=== PATIENT | female | born 1950 | race Caucasian/White ===

== ENCOUNTER 2019-11-03 09:16 | Emergency (ER) | payer MEDICARE, SELFPAY ==
[2019-11-03 09:23] VITALS: BP 92/54; PULSE 74; O2SAT 98
--- NOTE | 2019-11-03 09:24 | ED.GENADULT ---
HPI - General Adult General Chief complaint: Wound/Laceration Stated complaint: rt foot ulcer Time Seen by Provider: 11/03/19 09:24 History of Present Illness HPI narrative: 69-year-old woman with a history of back trouble diabetes and mild peripheral neuropathy, hypothyroidism presents with a developing right foot ulcer. She 1st noticed an issue approximately 4 months ago she felt that she burned the bottom of her foot some of the skin peeled off and she has had some mild swelling and irritation since. She does not since the bottom of her forefoot and distal and so did not realize how bad it had gone. Her daughters looked at the bottom of her foot and soft an ulceration and insisted she go to urgent care where she was seen last week. Apparently a culture was done and she has heard no follow-up from that. Was not started on antibiotics at the time. She has been soaking the foot more however the forefoot dorsum of the foot and calf are more swollen. There is not significant erythema, or dramatic discharge, no subcutaneous air is palpable she is able to move all toes without difficulty and able to walk without difficulty. She denies fever, cough, chills, dyspnea, palpitation, orthopnea, abdominal pain, weight changes and notes that her sugars have been stable recently She does note that she has irritable bowel and her bowels have been their baseline level of intermittent constipation and diarrhea. She notes intermittent edema more on the right since issue has started but also worse with any heat. Related Data Previous Rx's Medication Instructions Recorded oxycodone-acetaminophen [Percocet] 1 tab PO Q4HP PRN #15 tab 11/26/15 dicloxacillin 500 mg PO QID #30 cap 11/03/19 Allergies Allergy/AdvReac Type Severity Reaction Status Date / Time No Known Drug Allergies Allergy Verified 11/03/19 09:55 Review of Systems Review of Systems Narrative: Remainder of review of systems including constitutional, ENT, cardiovascular, respiratory, GI, , musculoskeletal, skin, neurologic and psychiatric systems reviewed and are unremarkable except as noted in HPI. Patient History Medical History Hypothyroidism (acquired) (Acute) Social History Smoking Status: Never smoker Exam Narrative Exam Narrative: General: Healthy appearing, in no acute distress. Able to give a complete and coherent history. Well-nourished well-developed HEENT: Moist mucous membranes, normal sclera with reactive pupils, Neck: No JVD, supple Respiratory: Lungs are clear to auscultation, no wheezing no rales no rhonchi. Full and symmetrical air movement Cardiac: Regular rate and rhythm no murmurs no bruits Abdomen: Soft nontender good bowel tones, no flank pain Skin: Warm and dry, no rashes Neurologic: Grossly neurologically intact with no obvious asymmetries or abnormalities Extremities: Lower extremity is edematous compared to the left. There is no significant erythema no lymphangitis spread and no obvious cellulitis. There is more pronounced swelling over the dorsum of the foot and the forefoot with an approximately 2 cm diameter area of skin over the forefoot that appears to be tissue with a small central opening with no current drainage. To fully understand the degree of ulceration that large amount of tissue will need to be unroofed and the wound significantly debrided Psych: Cooperative, appropriate insight and affect Initial Vital Signs Initial Vital Signs: Vital Signs Pulse Rate 74 11/03/19 09:23 Blood Pressure 92/54 L 11/03/19 09:23 Pulse Oximetry 98 11/03/19 09:23 Course Orders Ordered: ED Orders 11/03/19 09:34 XR foot RT min 3V Stat 11/03/19 09:48 Blood Culture Stat C-Reactive Protein Quant Stat Complete Blood Count AUTO DIFF Stat Comprehensive Metabolic Panel Stat Erythrocyte Sedimentation Rate Stat Lactate (Lactic Acid) Stat Vital Signs Vital signs: Vital Signs - 8 hr 11/03/19 09:23 11/03/19 09:26 11/03/19 09:30 Temperature 98.3 F Pulse Rate 74 72 70 Respiratory Rate 16 Blood Pressure 92/54 L 92/54 L 108/61 Pulse Oximetry 98 99 98 11/03/19 10:30 Temperature Pulse Rate 70 Respiratory Rate Blood Pressure Pulse Oximetry 97 Medical Decision Making Medical Records Medical records reviewed: Yes I reviewed the patient's medical records. Lab Data Lab results reviewed: Yes I reviewed the patient's lab results. Result diagrams: 11/03/19 09:48 11/03/19 09:48 Labs: Lab Results 11/03/19 11/03/19 11/03/19 Range/Units 09:48 09:48 09:48 WBC 5.5 (4.5-11.0) X10^3/uL RBC 4.19 (4.0-5.2) X10^6/uL Hgb 12.5 (12.0-16.0) g/dL Hct 36.5 (36-46) % MCV 87.1 (80-100) fL MCH 29.9 (26-34) PG MCHC 34.3 (30-36) % RDW 13.3 (11.6-14.8) % Plt Count 247 (150-400) X10^3/uL Neut % (Auto) 71.9 (50-75) % Lymph % (Auto) 15.1 L (25-40) % [place] % (Auto) 7.6 (3-14) % Eos % (Auto) 4.4 H (2-4) % Baso % (Auto) 1.0 (0-2) % Neut # (Auto) 4000 (4486-5442) /uL Lymph # (Auto) 800 L (9630-9187) /uL [place] # (Auto) 400 (0-900) /uL Eos # (Auto) 200 (0-450) /uL Baso # (Auto) 100 (0-100) /uL ESR 14 (0-20) MM/HR Sodium 134 L (137-145) mmol/L Potassium 4.2 (3.4-5.1) mmol/L Chloride 101 (98-107) mmol/L Carbon Dioxide 28 (22-32) mmol/L BUN 14 (7-17) mg/dL Creatinine 0.63 (0.52-1.04) mg/dL Estimated GFR > 60.0 (>60) mL/min BUN/Creatinine Ratio 22.2 H (6-22) Glucose 148 H (80-110) mg/dL Lactate 0.7 (0.7-2.1) mmol/L Calcium 9.6 (8.4-10.2) mg/dL Total Bilirubin 0.5 (0.2-1.3) mg/dL AST 16 (14-36) IU/L ALT 11 (<35) IU/L Alkaline Phosphatase 79 (38-126) U/L C-Reactive Protein < 0.5 (<1.0) mg/dL Total Protein 7.4 (6.3-8.2) g/dL Albumin 4.2 (3.5-5.0) g/dL Globulin 3.2 (1.7-4.1) g/dL Albumin/Globulin Ratio 1.3 (1.0-2.8) Imaging Data Foot x-ray: Radiologist's Impression: IMPRESSION: No focal osseous destruction to suggest advanced osteomyelitis. If there is persistent clinical concern, continued short interval radiographic followup or contrast enhanced MRI could be performed to assess for early infection. Degenerative changes as above. Soft tissue swelling and ulceration along the plantar aspect of the forefoot. Dictated by: Jace Do M.D. on 11/03/2019 at 10:01 [facility] Narrative Medical decision making narrative: 69-year-old woman with a diabetic foot ulcer without evidence of sepsis, overwhelming infection or osteomyelitis. She does need the area debrided in this spoken with podiatry. She will be placed on doxycycline (up-to-date recommendations based on mild diabetic foot ulcer presentation) and will follow-up with Dr. Caceres within the week for debridement and definitive care. Patient is safe for home discharge Discharge Plan Departure Patient Disposition: Home Clinical Impression: Diabetic foot ulcer Qualifiers: Diabetic foot ulcer location: midfoot Diabetes mellitus type: type 2 Laterality: right Non-pressure ulcer stage: with other severity Qualified Code(s): E11.621 - Type 2 diabetes mellitus with foot ulcer Instructions: DI for Diabetic Foot Ulcer Activity Restrictions/Additional Instructions: Thank you for coming in today Your foot is clearly infected however there is no signs of spreading infection or infection that is into the bone. I am going to start you on dicloxacillin, an antibiotic. However the more important part of having this wound heal completely is following up with the ammonium nitrate crystallizer. You will likely need to have the area debrided, completely cleaned out and then will need help with healing fully. Dr. Caceres's office will be calling you to set up an appointment for later this week Please return for increasing redness, actually developing more pain, weakness, fevers, drainage or other concerns. Prescriptions: New dicloxacillin 500 mg capsule 500 mg PO QID Qty: 30 RF: 0 No Action oxycodone-acetaminophen [Percocet] 5 MG/325 MG tablet 1 tab PO Q4HP PRNQty: 15 RF: 0 Referrals: Xochilt Caceres DPM [Physician] - Nimesh Whitmore MD [Primary Care Provider] -
[2019-11-03 09:26] VITALS: BP 92/54; PULSE 72; RESP 16; TEMP 36.8; O2SAT 99; BMI 25.8
[2019-11-03 09:30] VITALS: BP 108/61; PULSE 70; O2SAT 98
--- NOTE | 2019-11-03 09:32 | PC.NURSE ---
patient has diabetic neuropathy, generally has numbness but has noted increasing pain.
--- NOTE | 2019-11-03 09:34 | DI.RAD.S_ITS ---
PROCEDURE: XR FOOT RT MIN 3V INDICATIONS: ulcer, ? osteomyelitis? TECHNIQUE: 3 views of the foot were acquired. COMPARISON: None. FINDINGS: Bones: No fractures or dislocations. No suspicious bony lesions. Soft tissue swelling and ulceration along the plantar aspect of the forefoot best seen on the lateral view Scattered degenerative subchondral sclerosis and spurring. Large posterior calcaneal spur. Diffuse interphalangeal joint degeneration. IMPRESSION: No focal osseous destruction to suggest advanced osteomyelitis. If there is persistent clinical concern, continued short interval radiographic followup or contrast enhanced MRI could be performed to assess for early infection. Degenerative changes as above. Soft tissue swelling and ulceration along the plantar aspect of the forefoot. Dictated by: Jace Do M.D. on 11/03/2019 at 10:01 Approved by: Jace Do M.D. on 11/03/2019 at 10:32
[2019-11-03 09:57] LABS: Add Manual Diff / Slide Review NO; Basophils Absolute Auto 100 /uL (0-100); Eosinophils Absolute Auto 200 /uL (0-450); Eosinophils Percent Auto 4.4 % (2-4); Hematocrit 36.5 % (36-46); Hemoglobin 12.5 g/dL (12.0-16.0); Lymphocytes Absolute Auto 800 /uL (1100-4500); Lymphocytes Percent Auto 15.1 % (25-40); Mean Corpuscular HGB Conc 34.3 % (30-36); Mean Corpuscular Hemoglobin 29.9 PG (26-34); Mean Corpuscular Volume 87.1 fL (80-100); Monocytes Absolute Auto 400 /uL (0-900); Monocytes Percent Auto 7.6 % (3-14); Neutrophils Absolute Auto 4000 /uL (1500-7000); Neutrophils Percent Auto 71.9 % (50-75); Platelet Count 247 X10^3/uL (150-400); Red Blood Cell Count 4.19 X10^6/uL (4.0-5.2); Red Cell Distribution Width 13.3 % (11.6-14.8); White Blood Cell Count 5.5 X10^3/uL (4.5-11.0)
[2019-11-03 10:09] LABS: Lactate (Lactic Acid) 0.7 mmol/L (0.7-2.1)
[2019-11-03 10:12] LABS: Alanine Aminotransferase 11 IU/L (<35); Albumin 4.2 g/dL (3.5-5.0); Albumin Globulin Ratio 1.3 (1.0-2.8); Alkaline Phosphatase 79 U/L (38-126); Aspartate Aminotransferase 16 IU/L (14-36); BUN Creatinine Ratio 22.2 (6-22); Bilirubin Total 0.5 mg/dL (0.2-1.3); Blood Urea Nitrogen 14 mg/dL (7-17); Calcium 9.6 mg/dL (8.4-10.2); Carbon Dioxide 28 mmol/L (22-32); Chloride 101 mmol/L (98-107); Erythrocyte Sedimentation Rate 14 MM/HR (0-20); Estimated Glomerular Filt Rate > 60.0 mL/min (>60); Globulin 3.2 g/dL (1.7-4.1); Glucose 148 mg/dL (80-110); HEMOLYSIS < 15 (0-50); Potassium 4.2 mmol/L (3.4-5.1); Sodium 134 mmol/L (137-145); Total Protein 7.4 g/dL (6.3-8.2)
[2019-11-03 10:13] LABS: C-Reactive Protein Quant < 0.5 mg/dL (<1.0)
[2019-11-03 10:30] VITALS: PULSE 70; O2SAT 97
[2019-11-03 12:24] VITALS: BP 135/60; PULSE 66; O2SAT 97
[2019-11-03 12:36] VITALS: BP 147/66; PULSE 68; RESP 16; O2SAT 98
== END 2019-11-03 12:37 | disposition home or self-care (01) ==
PROVIDERS: Emergency Provider Emergency Medicine; Family Provider Family Medicine; PCP Internal Medicine
DX: E11.621 Type 2 diabetes mellitus with foot ulcer (principal)
CPT/HCPCS: 36415; 73630; 80053; 83605; 85025; 85651; 86140; 87040; 99283; 99284

== ENCOUNTER 2019-12-27 08:19 | Emergency (ER) | payer MEDICARE, SELFPAY ==
[2019-12-27] VITALS (7 sets, daily range): BP systolic 145–175; BP diastolic 65–72; PULSE 62–72; RESP 16–17; TEMP 37.2; O2SAT 97–100; BMI 25.5
--- NOTE | 2019-12-27 08:32 | DI.RAD.S_ITS ---
PROCEDURE: XR CHEST 1V INDICATIONS: chest pain TECHNIQUE: One view of the chest was acquired. COMPARISON: None. FINDINGS: Surgical changes and devices: None. Lungs and pleura: No focal infiltrates are seen. At least 1 calcified granuloma can be seen involving the left lower lung. No pleural effusions or pneumothorax. Mediastinum: Mediastinal contours appear normal. Heart size is normal. Bones and chest wall: Age-appropriate bony degenerative changes are seen. No suspicious bony lesions. Overlying soft tissues appear unremarkable. IMPRESSION: No acute abnormality is seen. Incidental note is made of: Prior granulomatous exposure. Dictated by: Fabio Cam M.D. on 12/27/2019 at 8:00 Approved by: Fabio Cam M.D. on 12/27/2019 at 8:01
--- NOTE | 2019-12-27 08:36 | ED.CHESTPAIN ---
HPI - Chest Pain General Chief Complaint: Chest Pain Stated Complaint: nausea/vomiting/ poss ulcer Time Seen by Provider: 12/27/19 08:26 Source: patient Mode of arrival: Ambulatory Limitations: no limitations History of Present Illness HPI narrative: Patient is a 69-year-old female with history of diabetes presenting with epigastric pain. She says this morning she woke up with trolley horses in her legs she stood up and then laid back down and then instantly did not feel well. Her epigastric pain radiates up into her chest. She denies any shortness of breath or heart palpitations. She feels a little nauseous she has had no vomiting. No Fever chills cough or shortness of breath. Daughter states she is under significant amount of stress MD complaint: chest pain Onset (ago): hour(s) Duration: constant Quality: sharp Relieving factors: nothing Exacerbating factors: nothing Related Data Previous Rx's Medication Instructions Recorded oxycodone-acetaminophen [Percocet] 1 tab PO Q4HP PRN #15 tab 11/26/15 dicloxacillin 500 mg PO QID #30 cap 11/03/19 Allergies Allergy/AdvReac Type Severity Reaction Status Date / Time No Known Drug Allergies Allergy Verified 11/03/19 09:55 Review of Systems Review of Systems Narrative: GENERAL: Denies chills, fatigue, malaise, fever, sweats, travel HEENT: Denies sinus pain, ear pain, sore throat, difficulty swallowing, neck pain RESPIRATORY: Denies dyspnea, cough, wheezing, hemoptysis, sputum. CARDIOVASCULAR: See HPI GASTROINTESTINAL: Denies nausea, vomiting, abdominal pain, diarrhea, constipation, melena. : Denies dysuria, frequency, incontinence, hematuria, urinary retention, flank pain. MUSCULOSKELETAL: Denies weakness, joint pain, or bony pain SKIN: No rash, no erythema, no pruritus NEUROLOGIC: Denies weakness, dizziness, headache, numbness, change in speech, confusion PSYCHIATRIC: No concerning psychosocial issues. 12 point review of systems is negative except for those stated above and HPI Patient History Medical History Diabetes (Acute) Hypothyroidism (acquired) (Acute) Social History Smoking Status: Never smoker Smoking Status: Never smoker alcohol intake frequency: holidays/special occasions only Substance Use Type: does not use Exam Initial Vital Signs Initial Vital Signs: Vital Signs Temperature 98.9 F 12/27/19 08:33 Pulse Rate 72 12/27/19 08:33 Respiratory Rate 17 12/27/19 08:33 Blood Pressure 175/72 H 12/27/19 08:33 Pulse Oximetry 99 12/27/19 08:33 GENERAL: Well-appearing, well-nourished and in no acute distress. HEENT: Head atraumatic,EOMI, pupils reactive, face symmetric, moist mucous membranes CARDIOVASCULAR: Regular rate and rhythm without murmurs, rubs or gallops. RESPIRATORY: Breath sounds equal bilaterally, no wheezes rales or rhonchi. ABDOMEN: Soft, mild epigastric pain no right upper quadrant tenderness. Normoactive bowel sounds all 4 quadrants. No guarding or rebound. EXTREMITIES: Normal range of motion, no clubbing or edema. Neurovascularly intact NEUROLOGICAL: Alert and oriented x4.Normal gait and speech. SKIN: Warm, dry, no laceration, no petechiae, no rashes or lesions. Scores HEART Score Heart Score history: Slightly Suspicious Heart Score EKG: Normal Heart Score Age: > or = 65 years old Heart Score risk factors: 1-2 risk factors Heart Score troponin: < or = to normal limit Heart Score Total: 3 Course Orders Ordered: ED Orders 12/27/19 08:22 Complete Blood Count AUTO DIFF Stat Comprehensive Metabolic Panel Stat Lipase Stat Partial Thromboplastin Time Stat Prothrombin Time INR Stat Troponin & CK Cardiac Panel Stat 12/27/19 08:32 XR chest 1V Stat EKG-12 Lead Stat 12/27/19 10:30 Trop I [Troponin I] Stat 12/27/19 10:54 EKG-12 Lead Stat Discontinued Medications Aspirin (Aspirin Chew) 324 mg PO NOW ONE Stop: 12/27/19 08:32 Last Admin: 12/27/19 08:49 Dose: 324 mg Documented by: BTONER Sodium Chloride (Normal Saline 0.9%) 1,000 mls @ 150 mls/hr IV CONT ITALIA Last Admin: 12/27/19 08:50 Dose: 150 mls/hr Documented by: BTONER Pantoprazole Sodium (Protonix) 40 mg IV NOW ONE Stop: 12/27/19 08:32 Last Admin: 12/27/19 08:49 Dose: 40 mg Documented by: BTONER Vital Signs Vital signs: Vital Signs - 8 hr 12/27/19 08:33 12/27/19 09:31 12/27/19 09:32 Temperature 98.9 F Pulse Rate 72 67 Respiratory Rate 17 16 Blood Pressure 175/72 H 145/65 H Pulse Oximetry 99 100 12/27/19 10:00 12/27/19 10:30 12/27/19 11:00 Temperature Pulse Rate 62 71 65 Respiratory Rate 16 16 Blood Pressure 149/65 H 161/69 H 148/67 H Pulse Oximetry 97 98 100 12/27/19 11:30 Temperature Pulse Rate 64 Respiratory Rate Blood Pressure 167/70 H Pulse Oximetry 99 MDM - Chest Pain Lab Data Attestation: I reviewed the patient's lab results. Result diagrams: 12/27/19 08:22 12/27/19 08:22 Labs: Lab Results 12/27/19 12/27/19 12/27/19 Range/Units 08:22 08:22 08:22 WBC 10.6 (4.5-11.0) X10^3/uL RBC 4.54 (4.0-5.2) X10^6/uL Hgb 13.7 (12.0-16.0) g/dL Hct 40.3 (36-46) % MCV 88.7 (80-100) fL MCH 30.1 (26-34) PG MCHC 33.9 (30-36) % RDW 13.4 (11.6-14.8) % Plt Count 264 (150-400) X10^3/uL Neut % (Auto) 83.8 H (50-75) % Lymph % (Auto) 8.9 L (25-40) % [place] % (Auto) 5.5 (3-14) % Eos % (Auto) 1.0 L (2-4) % Baso % (Auto) 0.8 (0-2) % Neut # (Auto) 8900 H (4152-2585) /uL Lymph # (Auto) 900 L (9070-9853) /uL [place] # (Auto) 600 (0-900) /uL Eos # (Auto) 100 (0-450) /uL Baso # (Auto) 100 (0-100) /uL PT 10.8 (10.1-12.7) SECONDS INR 0.9 (0.9-1.3) APTT 32 (26.4-36.2) SECONDS Sodium 138 (137-145) mmol/L Potassium 3.9 (3.4-5.1) mmol/L Chloride 103 (98-107) mmol/L Carbon Dioxide 28 (22-32) mmol/L BUN 16 (7-17) mg/dL Creatinine 0.63 (0.52-1.04) mg/dL Estimated GFR > 60.0 (>60) mL/min BUN/Creatinine Ratio 25.4 H (6-22) Glucose 192 H (80-110) mg/dL Calcium 9.9 (8.4-10.2) mg/dL Total Bilirubin 0.9 (0.2-1.3) mg/dL AST 18 (14-36) IU/L ALT 16 (<35) IU/L Alkaline Phosphatase 85 (38-126) U/L Total Creatine Kinase 35 (30-135) U/L CK-MB (CK-2) TNP CK-MB (CK-2) Rel Index TNP Troponin I < 0.012 (0.01-0.034) ng/mL Total Protein 8.3 H (6.3-8.2) g/dL Albumin 4.7 (3.5-5.0) g/dL Globulin 3.6 (1.7-4.1) g/dL Albumin/Globulin Ratio 1.3 (1.0-2.8) Lipase 145 (23-300) U/L 12/27/19 Range/Units 10:30 WBC (4.5-11.0) X10^3/uL RBC (4.0-5.2) X10^6/uL Hgb (12.0-16.0) g/dL Hct (36-46) % MCV (80-100) fL MCH (26-34) PG MCHC (30-36) % RDW (11.6-14.8) % Plt Count (150-400) X10^3/uL Neut % (Auto) (50-75) % Lymph % (Auto) (25-40) % [place] % (Auto) (3-14) % Eos % (Auto) (2-4) % Baso % (Auto) (0-2) % Neut # (Auto) (1827-8784) /uL Lymph # (Auto) (4635-7068) /uL [place] # (Auto) (0-900) /uL Eos # (Auto) (0-450) /uL Baso # (Auto) (0-100) /uL PT (10.1-12.7) SECONDS INR (0.9-1.3) APTT (26.4-36.2) SECONDS Sodium (137-145) mmol/L Potassium (3.4-5.1) mmol/L Chloride (98-107) mmol/L Carbon Dioxide (22-32) mmol/L BUN (7-17) mg/dL Creatinine (0.52-1.04) mg/dL Estimated GFR (>60) mL/min BUN/Creatinine Ratio (6-22) Glucose (80-110) mg/dL Calcium (8.4-10.2) mg/dL Total Bilirubin (0.2-1.3) mg/dL AST (14-36) IU/L ALT (<35) IU/L Alkaline Phosphatase (38-126) U/L Total Creatine Kinase (30-135) U/L CK-MB (CK-2) CK-MB (CK-2) Rel Index Troponin I < 0.012 (0.01-0.034) ng/mL Total Protein (6.3-8.2) g/dL Albumin (3.5-5.0) g/dL Globulin (1.7-4.1) g/dL Albumin/Globulin Ratio (1.0-2.8) Lipase (23-300) U/L ECG Data Attestation: I personally reviewed and interpreted this ECG as follows: Interpretation: Normal sinus rhythm rate 68 p.r. interval 146 QRS [address] changes possible T-wave inversion in V2 some artifact noted EKG 2. Sinus rhythm rate 66 no changes from prior MDM Narrative Medical decision making narrative: Patient has 2-troponins and normal EKGs. At this time I recommend outpatient follow-up for stress test if needed and to return. I discussed all findings with the patient, Education has been performed regarding treatment plan, diagnosis, warning signs and symptoms and all concerns have been addressed. Verbally agree with and understood all of the above. Discharge Plan Departure Patient Disposition: Home Clinical Impression: Atypical chest pain Discharge Date/Time: 12/27/19 11:39 Instructions: DI for Atypical Chest Pain Activity Restrictions/Additional Instructions: *You have been diagnosed with atypical chest pain *What to do: At this time I recommend you follow-up with her primary care provider you may require further cardiac testing such as a stress test and/or echocardiogram. You may require an EGD if you are having an ulcer. *Continue to take medications as directed *Follow up with your primary care provider in 2-3 days *Return to ER if you should have increase the pain, dizziness, lightheaded, persistent nausea, shortness of breath with walking [or] any new, worsening or concerning symptoms Prescriptions: No Action oxycodone-acetaminophen [Percocet] 5 MG/325 MG tablet 1 tab PO Q4HP PRNQty: 15 RF: 0 dicloxacillin 500 mg capsule 500 mg PO QID Qty: 30 RF: 0 Referrals: Nimesh Whitmore MD [Primary Care Provider] -
[2019-12-27 08:42] LABS: Add Manual Diff / Slide Review NO; Basophils Absolute Auto 100 /uL (0-100); Basophils Percent Auto 0.8 % (0-2); Eosinophils Absolute Auto 100 /uL (0-450); Hematocrit 40.3 % (36-46); Hemoglobin 13.7 g/dL (12.0-16.0); Lymphocytes Absolute Auto 900 /uL (1100-4500); Lymphocytes Percent Auto 8.9 % (25-40); Mean Corpuscular HGB Conc 33.9 % (30-36); Mean Corpuscular Hemoglobin 30.1 PG (26-34); Mean Corpuscular Volume 88.7 fL (80-100); Monocytes Absolute Auto 600 /uL (0-900); Monocytes Percent Auto 5.5 % (3-14); Neutrophils Absolute Auto 8900 /uL (1500-7000); Neutrophils Percent Auto 83.8 % (50-75); Platelet Count 264 X10^3/uL (150-400); Red Blood Cell Count 4.54 X10^6/uL (4.0-5.2); Red Cell Distribution Width 13.4 % (11.6-14.8); White Blood Cell Count 10.6 X10^3/uL (4.5-11.0)
[2019-12-27] MEDS: ASPIRIN 81 MG CHEW TAB 324 MG PO (08:49)
[2019-12-27] MEDS: PANTOPRAZOLE 40 MG VIAL IV (08:49)
[2019-12-27] MEDS: SODIUM CHLORIDE 0.9% 1,000 ML 150 ML IV (08:50)
[2019-12-27 08:54] LABS: Alanine Aminotransferase 16 IU/L (<35); Albumin 4.7 g/dL (3.5-5.0); Albumin Globulin Ratio 1.3 (1.0-2.8); Alkaline Phosphatase 85 U/L (38-126); Aspartate Aminotransferase 18 IU/L (14-36); BUN Creatinine Ratio 25.4 (6-22); Bilirubin Total 0.9 mg/dL (0.2-1.3); Blood Urea Nitrogen 16 mg/dL (7-17); Calcium 9.9 mg/dL (8.4-10.2); Carbon Dioxide 28 mmol/L (22-32); Chloride 103 mmol/L (98-107); Creatine Kinase 35 U/L (30-135); Estimated Glomerular Filt Rate > 60.0 mL/min (>60); Globulin 3.6 g/dL (1.7-4.1); Glucose 192 mg/dL (80-110); HEMOLYSIS < 15 (0-50); INR 0.9 (0.9-1.3); Lipase 145 U/L (23-300); Potassium 3.9 mmol/L (3.4-5.1); Prothrombin Time 10.8 SECONDS (10.1-12.7); Sodium 138 mmol/L (137-145); Total Protein 8.3 g/dL (6.3-8.2)
[2019-12-27 08:56] LABS: PTT Partial Thromboplastin Tim 32 SECONDS (26.4-36.2)
[2019-12-27 09:05] LABS: Troponin I < 0.012 ng/mL (0.01-0.034)
[2019-12-27 11:04] LABS: Troponin I < 0.012 ng/mL (0.01-0.034)
--- NOTE | 2020-01-15 10:35 | TAR.TRANSNT ---
pt received 450ML NS, stop time was 1130
== END 2019-12-27 11:39 | disposition home or self-care (01) ==
PROVIDERS: Emergency Provider Emergency Medicine; Family Provider Family Medicine; PCP Internal Medicine
DX: R07.89 Other chest pain (principal); E11.9 Type 2 diabetes mellitus without complications; R10.13 Epigastric pain; R11.2 Nausea with vomiting, unspecified
CPT/HCPCS: 36415; 71045; 80053; 82550; 83690; 84484; 85025; 85610; 85730; 93005; 96361; 96374; 99284; C9113